=== PATIENT | male | born 1985 | race Hispanic/Latino ===

== ENCOUNTER 2016-12-06 21:56 | Emergency (ER) | payer BC, OTHER ==
[2016-12-06] MEDS ORDERED: Lidocaine 1% PF 5 ML VIAL ONE (23:34)
[2016-12-06] MEDS ORDERED: Lidocaine 1% (PF) 30 ML VIAL ONE (23:34)
[2016-12-07] MEDS ORDERED: Adacel (T-DAP) 0.5 ML VIAL ONE (00:35)
== END 2016-12-07 00:42 | disposition home or self-care (01) ==
LOC: ERS 21:56
DX: S61.512A Laceration without foreign body of left wrist, initial encounter (principal); S51.812A Laceration without foreign body of left forearm, initial encounter; Z23 Encounter for immunization; W45.8XXA Other foreign body or object entering through skin, initial encounter; Y92.69 Other specified industrial and construction area as the place of occurrence of the external cause; Y99.0 Civilian activity done for income or pay
CPT/HCPCS: 90471; 90715; J2001

== ENCOUNTER 2017-01-25 12:38 | Emergency (ER) | payer BC, SELFPAY | END 2017-01-25 13:50 | disposition home or self-care (01) | LOC: ERS 12:38 | DX: S01.01XA Laceration without foreign body of scalp, initial encounter (principal); J45.909 Unspecified asthma, uncomplicated; F41.9 Anxiety disorder, unspecified; F17.210 Nicotine dependence, cigarettes, uncomplicated; W22.8XXA Striking against or struck by other objects, initial encounter | CPT/HCPCS: 12001 ==

== ENCOUNTER 2017-12-25 11:12 | Emergency (ER) | payer SELFPAY ==
--- NOTE | 2017-12-25 13:41 | RAD ---
PA AND LATERAL VIEWS CHEST: Date: 12/25/17 HISTORY: Cough. FINDINGS: The heart size is normal. The lungs are expanded without focal areas of consolidation, pneumothorax, or pleural effusions seen. No acute osseous abnormalities are identified. No significant interval isac nge is seen since exam of 10/13/17. IMPRESSION: Normal exam. POS: [facility]
== END 2017-12-25 13:04 | disposition home or self-care (01) ==
LOC: ERS 11:12
DX: J06.9 Acute upper respiratory infection, unspecified (principal); J45.909 Unspecified asthma, uncomplicated; F41.9 Anxiety disorder, unspecified; F17.210 Nicotine dependence, cigarettes, uncomplicated
CPT/HCPCS: 71046

== ENCOUNTER 2018-01-08 19:56 | Emergency (ER) | payer SELFPAY ==
--- NOTE | 2018-01-08 21:36 | RAD ---
TWO VIEWS CHEST 01/08/18 HISTORY: Cough and sore throat for two weeks. PA and lateral views of the chest is obtained. The lungs are well aerated. No evidence of active intr athoracic disease seen. No evidence of effusions, pneumonia or pneumothorax seen. IMPRESSION: Normal two views chest. POS: [facility]
== END 2018-01-08 21:43 | disposition home or self-care (01) ==
LOC: ERS 19:56
DX: J40 Bronchitis, not specified as acute or chronic (principal); F41.9 Anxiety disorder, unspecified; F17.210 Nicotine dependence, cigarettes, uncomplicated
CPT/HCPCS: 71046

== ENCOUNTER 2018-06-29 10:16 | Emergency (ER) | payer BC, SELFPAY ==
--- NOTE | 2018-06-29 11:24 | RAD ---
CERVICAL SPINE SERIES 3 VIEWS: HISTORY: Neck pain. FINDINGS: Vertebral bodies are normal in height. Disk spaces appear fairly well preserved. Facets are in norm al alignment. There is no soft tissue swelling seen. IMPRESSION: Unremarkable cervical spine series. POS: [facility]
== END 2018-06-29 11:00 | disposition home or self-care (01) ==
LOC: ERS 10:16
DX: M54.2 Cervicalgia (principal); G89.29 Other chronic pain; J45.909 Unspecified asthma, uncomplicated; F41.9 Anxiety disorder, unspecified; F17.210 Nicotine dependence, cigarettes, uncomplicated
CPT/HCPCS: 72040

== ENCOUNTER 2018-12-12 15:23 | Emergency (ER) | payer SELFPAY ==
--- NOTE | 2018-12-12 16:09 | RAD ---
RADIOGRAPH CHEST 2 VIEWS: DATE: 12/12/2018 HISTORY: 33-year-old male with dyspnea. FINDINGS: There is no airspace density, pulmonary edema, pleural effusion, pneumothorax, or cardiomegaly. IMPRESSION: No acute cardiopulmonary findings.
[2018-12-12 16:11] LABS: #Basophils 0.1 thou/uL (0.0-0.2); #Eosinphils 0.1 thou/uL (0.0-0.7); #Lymphocytes 1.2 thou/uL (1.20-3.40); #Monocytes 0.5 thou/uL (0.11-0.59); %Basophils 0.5 % (0.0-1.0); %Eosinophils 1.1 % (0.0-10.0); %Lymphocytes 11.2 % (21.0-51.0); %Monocytes 4.6 % (0.0-10.0); %Neutrophils 82.6 % (42.0-75.0); Hemoglobin 17.1 g/dL (14.0-18.0); Mean Corpuscular HGB CONC 32.8 g/dL (32.0-36.0); Mean Corpuscular Hemoglobin 29.3 pg (27.0-31.0); Mean Corpuscular Volume 89.3 fL (78.0-98.0); Mean Platelet Volume 8.6 fL (7.4-10.4); Platelet Count 251 thou/uL (130-400); RBC Distribution Width 13.5 % (11.5-14.5); Red Blood Cell (RBC) Count 5.84 mill/uL (4.70-6.10); White Blood Cell (WBC) Count 10.9 thou/uL (4.8-10.8)
[2018-12-12 16:23] LABS: ALT (SGPT) 16 U/L (8-55); AST (SGOT) 16 U/L (5-34); Albumin 4.5 g/dL (3.5-5.0); Alkaline Phosphatase 89 U/L (40-110); Anion Gap 16 mmol/L (10-20); BUN (Urea Nitrogen) 7 mg/dL (8.9-20.6); Bilirubin, Total 0.5 mg/dL (0.2-1.2); Calc. Creatinine Clearance 0 mL/min (70-130); Calcium 9.6 mg/dL (7.8-10.44); Carbon Dioxide 27 mmol/L (22-29); Chloride 105 mmol/L (98-107); Estimated GFR-MDRD 89; Globulin 3.4 g/dL (2.4-3.5); Glucose 90 mg/dL (70-105); Potassium 4.6 mmol/L (3.5-5.1); Protein, Total 7.9 g/dL (6.0-8.3); Sodium 143 mmol/L (136-145)
== END 2018-12-12 17:12 | disposition home or self-care (01) ==
LOC: SCSER 15:23
DX: R55 Syncope and collapse (principal); F41.9 Anxiety disorder, unspecified; F17.210 Nicotine dependence, cigarettes, uncomplicated
CPT/HCPCS: 71046; 80053; 84484; 85025; 85379; 93005; 96360

== ENCOUNTER 2019-01-06 12:19 | Emergency (ER) | payer SELFPAY ==
[2019-01-06] MEDS ORDERED: Ketorolac Tromethamine 30 MG/ML VIAL ONE (13:13)
--- NOTE | 2019-01-06 13:37 | ULT ---
LEFT UPPER EXTREMITY VENOUS ULTRASOUND: Date: 01/06/19 COMPARISON: None. HISTORY: Left upper extremity pain and edema. TECHNIQUE: Multiplanar Bolivar scale and color Doppler images were obtained in a left upper extremity venous ultras ound. Spectral analysis of the Doppler waveforms were performed. FINDINGS: The left internal jugular vein demonstrates normal compression and flow without evidence of thrombus. The left subclavian vein demonstrates normal flow and augmentation without evidence of thrombus. The left axillary and brachial veins demonstrate normal compression, flow, and augmentation, without niecy dence of thrombus. The basilic and cephalic veins are patent without evidence of thrombus. The venous structures distal to the elbow are unremarkable. IMPRESSION: No evidence of left upper extremity thrombus. POS: [facility]
--- NOTE | 2019-01-07 07:42 | RAD ---
XR Chest 1 View Portable HISTORY: Chest pain, left arm pain and tingling COMPARISON: 12/12/2018 FINDINGS: The heart size is normal. The lungs are well expanded without focal areas of consolidation, pneumothorax or pleural effusions. There is continued mild elevation the right hemidiaphragm. IMPRESSION: No radiographic evidence of acute cardiopulmonary process.
== END 2019-01-06 14:19 | disposition home or self-care (01) ==
LOC: ERS 12:19
DX: S40.022A Contusion of left upper arm, initial encounter (principal); J45.909 Unspecified asthma, uncomplicated; F41.9 Anxiety disorder, unspecified; F17.220 Nicotine dependence, chewing tobacco, uncomplicated; X50.0XXA Overexertion from strenuous movement or load, initial encounter
CPT/HCPCS: 71045; 93005; J1885

== ENCOUNTER 2019-02-15 19:45 | Emergency (ER) | payer SELFPAY ==
[2019-02-15 20:07] LABS: #Basophils 0.1 thou/uL (0.0-0.2); #Eosinphils 0.1 thou/uL (0.0-0.7); #Lymphocytes 2.4 thou/uL (1.20-3.40); #Neutrophils 10.2 thou/uL (1.40-6.50); %Basophils 0.4 % (0.0-1.0); %Lymphocytes 17.7 % (21.0-51.0); %Monocytes 6.9 % (0.0-10.0); Hemoglobin 17.4 g/dL (14.0-18.0); Mean Corpuscular Hemoglobin 29.4 pg (27.0-31.0); Mean Corpuscular Volume 89.1 fL (78.0-98.0); Mean Platelet Volume 7.7 fL (7.4-10.4); Platelet Count 267 thou/uL (130-400); RBC Distribution Width 13.1 % (11.5-14.5); White Blood Cell (WBC) Count 13.8 thou/uL (4.8-10.8)
[2019-02-15 20:28] LABS: ALT (SGPT) 24 U/L (8-55); AST (SGOT) 18 U/L (5-34); Albumin 4.2 g/dL (3.5-5.0); Alkaline Phosphatase 96 U/L (40-110); Anion Gap 14 mmol/L (10-20); BUN (Urea Nitrogen) 9 mg/dL (8.9-20.6); Bilirubin, Total 0.4 mg/dL (0.2-1.2); Calc. Creatinine Clearance 0 mL/min (70-130); Carbon Dioxide 27 mmol/L (22-29); Chloride 105 mmol/L (98-107); Estimated GFR-MDRD 77; Glucose 110 mg/dL (70-105); Potassium 4.3 mmol/L (3.5-5.1); Protein, Total 7.2 g/dL (6.0-8.3); Sodium 142 mmol/L (136-145)
[2019-02-15] MEDS ORDERED: Lorazepam 1 MG TAB ONE (21:37)
[2019-02-15] MEDS ORDERED: Ondansetron ODT 4 MG TAB ONE (21:37)
--- NOTE | 2019-02-16 14:27 | EKG ---
Test Reason : Blood Pressure : / mmHG Vent. Rate : 112 BPM Atrial Rate : 112 BPM P-R Int : 122 ms QRS Dur : 082 ms QT Int : 312 ms P-R-T Axes : 051 047 024 degrees QTc Int : 425 ms Sinus tachycardia with occasional Premature ventricular complexes Otherwise normal ECG Confirmed by OUSMANE CASH ([id number]), supervising film or videotape editor FRANCE WITT ([id number]) on 02/16/2019 2:26:44 PM Referred By: Confirmed By:OUSMANE CASH
== END 2019-02-15 21:43 | disposition home or self-care (01) ==
LOC: ERS 19:45
DX: R11.2 Nausea with vomiting, unspecified (principal); F41.9 Anxiety disorder, unspecified; J45.909 Unspecified asthma, uncomplicated; F17.210 Nicotine dependence, cigarettes, uncomplicated
CPT/HCPCS: 36415; 80053; 85025; 93005; 94760; Q0162

== ENCOUNTER 2020-11-28 12:03 | Emergency (ER) | payer SELFPAY ==
[2020-11-28] MEDS ORDERED: Ketorolac Tromethamine 30 MG/ML VIAL ONE (14:00)
== END 2020-11-28 14:05 | disposition home or self-care (01) ==
LOC: ERS 12:03
DX: S39.012A Strain of muscle, fascia and tendon of lower back, initial encounter (principal); J45.909 Unspecified asthma, uncomplicated; F17.210 Nicotine dependence, cigarettes, uncomplicated
CPT/HCPCS: 96372; 99283; J1885

== ENCOUNTER 2021-08-25 13:50 | Emergency (ER) | payer SELFPAY | END 2021-08-25 14:20 | disposition home or self-care (01) | LOC: ERS 13:50 | DX: M54.6 Pain in thoracic spine (principal); F17.210 Nicotine dependence, cigarettes, uncomplicated | CPT/HCPCS: 99283 ==

== ENCOUNTER 2021-11-07 12:41 | Emergency (ER) | payer BC, SELFPAY ==
[2021-11-07] MEDS ORDERED: Dexamethasone 10 MG/ML VIAL ONE (14:12)
[2021-11-07] MEDS ORDERED: Dexamethasone 4 MG TAB ONE (14:13)
== END 2021-11-07 14:21 | disposition home or self-care (01) ==
LOC: ERS 12:41
DX: M54.6 Pain in thoracic spine (principal); F17.210 Nicotine dependence, cigarettes, uncomplicated
CPT/HCPCS: 71045; J1100; J8540

== ENCOUNTER 2022-03-28 10:12 | Emergency (ER) | payer BC | END 2022-03-28 11:56 | disposition home or self-care (01) | LOC: ERS 10:12 | DX: J06.9 Acute upper respiratory infection, unspecified (principal); Z20.822 Contact with and (suspected) exposure to COVID-19; Z87.891 Personal history of nicotine dependence | CPT/HCPCS: 87804; 99283; U0003; U0005 ==

== ENCOUNTER 2024-03-04 18:58 | Emergency (ER) | payer BC, SELFPAY ==
[2024-03-04] MEDS ORDERED: Ketorolac Tromethamine 30 MG (1 mL) VIAL ONE (19:26)
[2024-03-04 19:51] LABS: Bacteria/HPF None Seen HPF (None Seen); Bilirubin Negative (Negative); Blood, Urine Negative (Negative); CAUTI Indications for Culture Pelvic or flank pain; Clarity Clear (Clear); Glucose, Urine (Dipstick) Normal (Negative); Ketone, Urine Negative (Negative); Leukocyte Negative Leu/uL (Negative); Nitrite Negative (Negative); Protein, Urine (Dipstick) Negative (Neg-Trace); RBC/HPF 0-3 HPF (0-3); Specific Gravity, Urine 1.008 (1.002-1.036); Squamous Epithelial None Seen HPF (0-3); Urobilinogen Normal mg/dL (Less than 2)
[2024-03-04 19:52] LABS: Urine Culture Reflex No No
[2024-03-05 01:23] LABS: Chlam.trachomatis by PCR,Urine Not Detected (NotDetected); GC N.gonorrhoeae PCR,UrineVOID Not Detected (NotDetected)
== END 2024-03-04 20:58 | disposition home or self-care (01) ==
LOC: ERS 18:58
DX: N50.812 Left testicular pain (principal); F17.210 Nicotine dependence, cigarettes, uncomplicated
CPT/HCPCS: 76870; 81001; 87491; 87591; 93976; 96372; J1885